=== PATIENT | male | born 1995 | race Caucasian/White ===

== ENCOUNTER 2018-07-14 10:56 | Outpatient (CLI) | payer OTHER ==
[2018-07-14 18:55] LABS: BASOPHILS % (AUTO) 0.6 %; EOSINOPHILS # (AUTO) 0.1 10^3/uL (0.0-0.7); EOSINOPHILS % (AUTO) 2.4 %; HGB - HEMOGLOBIN 15.7 g/dL (14.0-18.0); LYMPHOCYTES # (AUTO) 1.8 10^3/uL (1.5-3.5); LYMPHOCYTES % (AUTO) 30.2 %; MEAN CORPUSCULAR HEMOGLOBIN 30.5 pg (27.0-31.0); MEAN CORPUSCULAR HGB CONC 33.1 g/dL (32.0-36.0); MEAN CORPUSCULAR VOLUME 92.2 fL (80.0-94.0); MEAN PLATELET VOLUME 10.5 fL (7.4-11.4); MONOCYTES # (AUTO) 0.5 10^3/uL (0.0-1.0); MONOCYTES % (AUTO) 7.8 %; NEUTROPHILS # (AUTO) 3.6 10^3/uL (1.5-6.6); PLT - PLATELET COUNT 228 10^3/uL (130-450); RED BLOOD COUNT 5.15 10^6/uL (4.70-6.10); RED CELL DISTRIBUTION WIDTH 12.3 % (12.0-15.0); WHITE BLOOD COUNT 6.1 x10^3/uL (4.8-10.8)
[2018-07-14 19:15] LABS: ALBUMIN 4.6 g/dL (3.2-5.5); ALBUMIN/GLOBULIN RATIO 1.3 (1.0-2.2); ALKALINE PHOSPHATASE 78 IU/L (42-121); ALT ALANINE AMINOTRANSFERASE 64 IU/L (10-60); AST ASPARTATE AMINOTRANSFERASE 40 IU/L (10-42); BILIRUBIN,TOTAL 1.3 mg/dL (0.2-1.0); BUN - BLOOD UREA NITROGEN 10 mg/dL (6-20); CALCIUM 9.6 mg/dL (8.5-10.3); CARBON DIOXIDE - CO2 30 mmol/L (21-32); CHLORIDE 99 mmol/L (101-111); CHOLESTEROL 151 mg/dL; CREATININE 0.8 mg/dL (0.6-1.2); GFR - MDRD 119 (>89); GLUCOSE 101 mg/dL (70-100); HDL CHOLESTEROL 25 mg/dL; LDL CHOLESTEROL,CALCULATED 75 mg/dL; SODIUM 136 mmol/L (135-145); TOTAL PROTEIN 8.1 g/dL (6.7-8.2); VLDL CHOLESTEROL 51 mg/dL
[2018-07-14 19:19] LABS: HEMOGLOBIN A1C 0.51 g/dL; HEMOGLOBIN A1C % 4.9 % (4.6-6.2)
== END 2018-07-14 23:59 | disposition home or self-care (01) ==
LOC: LAB.WCP 10:56
PROVIDERS: ATTEND Family Medicine
DX: Z00.00 Encounter for general adult medical examination without abnormal findings (principal)
CPT/HCPCS: 36415; 80053; 80061; 83036; 83721; 84443; 85025

== ENCOUNTER 2018-07-14 11:42 | Outpatient (CLI) | payer OTHER ==
--- NOTE | 2018-07-14 14:54 | XRAY Report ---
Reason: LOWER LEG JOINT PAIN, RIGHT Procedure Date: 07/14/2018 Accession Number: [id number] / [id number] Procedure: XR - Tib/Fib RT CPT Code: FULL RESULT: EXAM: RIGHT TIBIA/FIBULA RADIOGRAPHY EXAM DATE: 07/14/2018 12:24 PM. CLINICAL HISTORY: LOWER LEG JOINT PAIN, RIGHT. COMPARISON: None. TECHNIQUE: 2 views. FINDINGS: Bones: There is deformity of the distal third of the tibial diaphysis with circumferential cortical thickening. The appearance is most suggestive of a healed fracture. Joints: The visualized knee and ankle joints are normal. No effusions. Soft Tissues: Normal. No soft tissue swelling. IMPRESSION: Suspect healed fracture in the distal tibia. If the patient has no history of remote tibial fracture, additional workup would be required including imaging. [facility] The above findings of tibial cortical thickening and deformity were discussed with Fernando by Dr. Bogdan Martini at 14:52 hrs on 07/14/18.
== END 2018-07-14 11:43 | disposition home or self-care (01) ==
LOC: DI 11:42
PROVIDERS: ATTEND Family Medicine
DX: Z00.00 Encounter for general adult medical examination without abnormal findings (principal); M79.661 Pain in right lower leg
CPT/HCPCS: 36415; 80053; 80061; 83036; 84443; 85025

== ENCOUNTER 2018-08-11 09:47 | Outpatient (CLI) | payer OTHER ==
[2018-08-11 10:23] LABS: ALKALINE PHOSPHATASE 65 IU/L (42-121)
[2018-08-11 11:53] LABS: CRP - C-REACTIVE PROTEIN < 1.0 mg/dL (0-1.0)
== END 2018-08-11 09:48 | disposition home or self-care (01) ==
LOC: LAB 09:47
PROVIDERS: ATTEND Orthopaedic Surgery
DX: R22.41 Localized swelling, mass and lump, right lower limb (principal)
CPT/HCPCS: 36415; 84075; 85651; 86140

== ENCOUNTER 2018-08-12 13:18 | Outpatient (CLI) | payer OTHER ==
[2018-08-12] MEDS ORDERED: GADOBUTROL 10 MMOL/10 ML VIAL ONE (13:37)
[2018-08-12] MEDS ORDERED: GADOBUTROL 10 MMOL/10 ML VIAL IVP ONE (14:56)
--- NOTE | 2018-08-12 15:36 | MRI Report ---
Reason: RT TIBIAL SHAFT BONE MASS Procedure Date: 08/12/2018 Accession Number: [id number] / [id number] Procedure: MRI - Lower Leg (Tib-Fib) RT W/WO CPT Code: FULL RESULT: EXAM: RIGHT CALF/TIBIA MRI WITHOUT AND WITH CONTRAST EXAM DATE: 08/12/2018 01:38 PM. CLINICAL HISTORY: Right tibial shaft bone mass. COMPARISON: LEG LOWER RT 07/14/2018 12:09 PM. TECHNIQUE: Multiplanar, multisequence T1-weighted and fluid-sensitive sequences of the calf/tibia before and after administration of intravenous contrast. IV contrast: 10 mL Gadavist given IV, no reaction. Other: None. FINDINGS: Bones: There area of abnormality seen by plain x-ray, there is significant cortical thickening. This is located at the junction of the middle and distal thirds of the tibia. Some marrow edema is also seen centrally. On some of these axial and sagittal images, there is a suggestion of a focal posterior cortical nidus. Series 1601 image 25, series 801 image 25. This is located in the posterior thickened tibial cortex. No discrete fracture lines. No malignant periosteal signs. No soft tissue masses. Joint Spaces: Visualized portions of the ankle and knee joints are unremarkable. Tendons: Where visualized, the Achilles and plantaris tendons are intact. Musculature: No edema, enhancement, or fatty atrophy. Other: Subcutaneous soft tissues anteriorly and also in the periosteal rim surrounding the tibia are somewhat hyperemic. IMPRESSION: 1. Focal area of concern seen by plain x-ray located at the junction of middle and distal thirds of the tibia shows significant cortical thickening. There is a suggestion of a focal nidus that does show some enhancement in the posterior thickened cortex. This measures about 5.6 mm. Series 1601 image 25. Differential diagnosis includes osteoid osteoma, William's abscess, or unusual healed stress fracture. CT scanning is recommended because osteoid osteomas are best seen with this technique. [facility] MUSCULOSKELETAL RADIOLOGY SECTION
== END 2018-08-12 13:19 | disposition home or self-care (01) ==
LOC: DI 13:18
PROVIDERS: ATTEND Orthopaedic Surgery
DX: M89.8X6 Other specified disorders of bone, lower leg (principal)
CPT/HCPCS: 73720; A9585

== ENCOUNTER 2018-08-18 07:13 | Outpatient (CLI) | payer OTHER ==
--- NOTE | 2018-08-18 10:55 | CT Report ---
Reason: BONE LESION,LOWER LEG JOINT PAIN,RIGHT Procedure Date: 08/18/2018 Accession Number: [id number] / [id number] Procedure: CT - Lower Extremity Right W/O CPT Code: FULL RESULT: EXAM: RIGHT LOWER EXTREMITY CT WITHOUT CONTRAST EXAM DATE: 08/18/2018 07:39 AM. CLINICAL HISTORY: Bone lesion, lower leg joint pain, right. COMPARISON: LOWER LEG (TIB-FIB) RT W/WO 08/12/2018 1:38 PM LEG LOWER RT 07/14/2018 12:09 PM. TECHNIQUE: Thin-section axial images were acquired from the mid tibia through the ankle without contrast. Post-processing: Coronal and sagittal reformats. Other: None. In accordance with CT protocol optimization, one or more of the following dose reduction techniques were utilized for this exam: automated exposure control, adjustment of mA and/or KV based on patient size, or use of iterative reconstructive technique. FINDINGS: Bones: As on the previous plain x-ray and MRI, there is exuberant dense periosteal new bone formation at the distal tibial diaphysis at the junction of the middle and distal thirds. Also along the posterior lateral cortex, there is a small focal 5 mm nidus present. Series 3 image 146, series 6 image 52, series 7 image 66 which corresponds to the area of concern seen by MRI. Also noted is some calcification of the medullary cavity in the region of the nidus. Series 3 image 130. Remainder of the included bony anatomy appears unremarkable. Joints: Included ankle joint also is unremarkable. No OCD defect. No effusion, no loose bodies. Musculature: Normal. No fatty atrophy. Other: The visualized intraperitoneal structures are unremarkable. IMPRESSION: 1. 5 mm nidus corresponds to the area of abnormality seen on MRI located at the posterior lateral aspect of the tibial cortex at the junction of the middle and distal thirds. Surrounding dense periosteal bone is seen. There is also some calcification of the medullary cavity in this location. 2. These features are typical for osteoid osteoma. [facility]
== END 2018-08-18 07:14 | disposition home or self-care (01) ==
LOC: DI 07:13
PROVIDERS: ATTEND Orthopaedic Surgery
DX: M89.9 Disorder of bone, unspecified (principal)

== ENCOUNTER 2021-10-04 08:05 | Emergency (ER) | payer OTHER ==
[2021-10-04] MEDS ORDERED: SODIUM CHLORIDE 0.9% 1,000 ML IV STA (08:31)
[2021-10-04] MEDS ORDERED: ceFAZolin 3 GM in SODIUM CHLORIDE 0.9% 100ML 100 ML IV STA (08:31)
--- NOTE | 2021-10-04 08:36 | ED Physician Documentation ---
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 He has had episodes of cellulitis and sepsis related to the surgical incision. This is the third or fourth time it happened. Twice was treated as an outpatient, once admitted in November of last year. Started to develop chills and fever last night with mild pain and redness in the right lower extremity today. Review of Systems Ten Systems: 10 systems reviewed and negative Constitutional: reports: Fever, Chills Nose: denies: Rhinorrhea / runny nose, Congestion Cardiac: denies: Chest pain / pressure, Palpitations Respiratory: denies: Dyspnea, Cough PD PAST MEDICAL HISTORY - Past Medical History Past Medical History: Yes Other Past Medical History: Sepsis d/t RLE cellulitis - Past Surgical History Past Surgical History: Yes Other past surgical history: RLE tumor removal 05/2020, pathology unknown - Present Medications Home Medications: Ambulatory Orders Medication Instructions Recorded Confirmed Sertraline [Zoloft] 50 mg PO DAILY 10/04/21 10/04/21 buPROPion HCL [Bupropion Xl] 300 mg PO DAILY 10/04/21 10/04/21 cephALEXin [Keflex] 500 mg PO Q6H #40 cap 10/04/21 - Allergies Allergies/Adverse Reactions: Allergies Allergy/AdvReac Type Severity Reaction Status Date / Time No Known Drug Allergies Allergy Verified 10/04/21 08:16 - Social History Does the pt smoke?: No Does the pt drink ETOH?: No Substance Use and Type: Marijuana - Family History Family history: reports: Non contributory PD ED PE NORMAL - Vitals Vital signs reviewed: Yes (mild tachy, febrile) - General General: Alert and oriented X 3, No acute distress - HEENT HEENT: PERRL, EOMI - Neck Neck: Supple, no meningeal sign, No bony TTP - Cardiac Cardiac: RRR, No murmur - Respiratory Respiratory: No respiratory distress, Clear bilaterally - Abdomen Abdomen: Normal bowel sounds, Soft, Non tender - Back Back: No CVA TTP, No spinal TTP - Derm Derm: Normal color, Warm and dry - Extremities Extremities: Other (C/D/I RLE medial lower leg incision with cellulitis ankle to upper calf, medially) - Neuro Neuro: Alert and oriented X 3, Normal speech Results - Vitals Vitals: Vital Signs - 24 hr 10/04/21 10/04/21 10/04/21 08:17 08:35 08:51 Temperature 38.4 C H Heart Rate 110 H 108 H 105 H Respiratory 24 19 29 H Rate Blood Pressure 130/76 121/70 103/47 L O2 Saturation 93 98 97 10/04/21 09:21 Temperature 37.3 C Heart Rate 98 Respiratory 21 Rate Blood Pressure 123/67 O2 Saturation 96 Oxygen O2 Source Room air - Labs Labs: Laboratory Tests 10/04/21 10/04/21 10/04/21 08:25 08:25 08:25 WBC 16.9 H RBC 5.03 Hgb 15.5 Hct 45.5 MCV 90.5 MCH 30.8 MCHC 34.1 RDW 12.6 Plt Count 196 MPV 12.2 H Neut # (Auto) 15.0 H Lymph # (Auto) 0.6 L Hudspeth # (Auto) 1.1 H Eos # (Auto) 0.0 Baso # (Auto) 0.0 Absolute Nucleated RBC 0.00 Nucleated RBC % 0.0 Sodium 134 L Potassium 3.8 Chloride 99 L Carbon Dioxide 25 Anion Gap 10.0 BUN 12 Creatinine 1.1 Estimated GFR (MDRD) 80 L Glucose 116 H Lactic Acid 0.7 Calcium 8.9 Total Bilirubin 2.6 H AST 23 ALT 31 Alkaline Phosphatase 51 Total Protein 7.6 Albumin 4.4 Globulin 3.2 Albumin/Globulin Ratio 1.4 PD MEDICAL DECISION MAKING - ED course ED course: This is a young man with 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 On arrival he is febrile and tachycardic but after the administration of some IV fluids and Tylenol this resolved. He does not have pain out of proportion or rapidly spreading cellulitis so I do not have much of a concern for a NSTI. White count is elevated but lactate normal. Departure - Departure Disposition: 01 Home, Self Care Clinical Impression: Cellulitis Qualifiers: Site of cellulitis: extremity Site of cellulitis of extremity: lower extremity Laterality: right Qualified Code(s): L03.115 - Cellulitis of right lower limb Condition: Good Record reviewed to determine appropriate education?: Yes Instructions: Cellulitis Dc Prescriptions: cephALEXin [Keflex] 500 mg PO Q6H #40 cap Comments: I sent a prescription electronically for antibiotics to [facility] in [place]. Return for new or worsening symptoms or if not improving over the next 48 h. Follow-up with your primary care physician on Thursday regardless. Discharge Date/Time: 10/04/21 09:59
[2021-10-04] MEDS ORDERED: ACETAMINOPHEN 500 MG TABLET PO STA (08:39)
[2021-10-04] MEDS ORDERED: ceFAZolin 2 GM in SODIUM CHLORIDE 0.9% 100ML 100 ML IV STA (08:45)
[2021-10-04 08:46] LABS: BASOPHILS % (AUTO) 0.2 %; EOSINOPHILS % (AUTO) 0.1 %; HCT - HEMATOCRIT 45.5 % (42.0-52.0); HGB - HEMOGLOBIN 15.5 g/dL (14.0-18.0); LYMPHOCYTES # (AUTO) 0.6 10^3/uL (1.5-3.5); LYMPHOCYTES % (AUTO) 3.7 %; MEAN CORPUSCULAR HEMOGLOBIN 30.8 pg (27.0-31.0); MEAN CORPUSCULAR HGB CONC 34.1 g/dL (32.0-36.0); MEAN CORPUSCULAR VOLUME 90.5 fL (80.0-94.0); MEAN PLATELET VOLUME 12.2 fL (7.4-11.4); MONOCYTES # (AUTO) 1.1 10^3/uL (0.0-1.0); MONOCYTES % (AUTO) 6.5 %; NEUTROPHILS % (AUTO) 89.1 %; PLT - PLATELET COUNT 196 10^3/uL (130-450); RED BLOOD COUNT 5.03 10^6/uL (4.70-6.10); RED CELL DISTRIBUTION WIDTH 12.6 % (12.0-15.0); WHITE BLOOD COUNT 16.9 x10^3/uL (4.8-10.8)
[2021-10-04 08:48] LABS: ALBUMIN 4.4 g/dL (3.2-5.5); ALBUMIN/GLOBULIN RATIO 1.4 (1.0-2.2); BILIRUBIN,TOTAL 2.6 mg/dL (0.2-1.0); CALCIUM 8.9 mg/dL (8.5-10.3); CREATININE 1.1 mg/dL (0.6-1.2); POTASSIUM 3.8 mmol/L (3.5-5.0); TOTAL PROTEIN 7.6 g/dL (6.7-8.2)
[2021-10-04 09:32] VITALS: BP 123/67
== END 2021-10-04 09:59 | disposition home or self-care (01) ==
LOC: ED 08:05
DX: T81.49XA Infection following a procedure, other surgical site, initial encounter (principal); L03.115 Cellulitis of right lower limb; Y83.8 Other surgical procedures as the cause of abnormal reaction of the patient, or of later complication, without mention of misadventure at the time of the procedure
CPT/HCPCS: 36415; 80053; 83605; 85025; 87040; 96361; 96365; 99282; 99284; A9270